=== PATIENT | male | born 1930 | race Caucasian/White ===

== ENCOUNTER 2018-10-14 09:35 | Inpatient (IN) | payer MEDICARE, MEDICAID ==
--- NOTE | 2018-10-14 10:27 | CT ---
Date of service: 10/14/2018 PROCEDURE: CT HEAD WITHOUT CONTRAST. HISTORY: dizziness COMPARISON: None available. TECHNIQUE: Axial computed tomography images were obtained through the head/brain without intravenous contrast. Radiation dose: Total exam DLP = 896.72 mGy-cm. This CT exam was performed using one or more of the following dose reduction techniques: Automated exposure control, adjustment of the mA and/or kV according to patient size, and/or use of iterative reconstruction technique. FINDINGS: HEMORRHAGE: No intracranial hemorrhage. BRAIN: No mass effect or edema. Chronic microvascular changes are seen in the periventricular white matter. VENTRICLES: Unremarkable. No hydrocephalus. CALVARIUM: Unremarkable. PARANASAL SINUSES: Unremarkable as visualized. No significant inflammatory changes. MASTOID AIR CELLS: Unremarkable as visualized. No inflammatory changes. OTHER FINDINGS: None. IMPRESSION: No acute intracranial findings
[2018-10-14 10:46] LABS: BASO # 0.03 K/mm3 (0.0-2.0); BASO % 0.5 % (0.0-3.0); EOS # 0.1 (0.0-0.7); EOS % 2.2 % (1.5-5.0); HEMOGLOBIN 12.1 g/dL (14.0-18.0); LYMPH # 1.7 (1.2-3.4); LYMPH % 31.5 % (22.0-35.0); MEAN CELL VOLUME 90.3 fl (80.0-105.0); MEAN CORPUSCULAR HEMOGLOBIN 27.9 pg (25.0-35.0); MEAN CORPUSCULAR HGB CONC 30.9 g/dl (31.0-37.0); MEAN PLATELET VOLUME 9.9 fl (7.0-11.0); MONO # 0.4 (0.1-0.6); RBC 4.33 10^6/uL (3.5-6.1); WHITE BLOOD COUNT 5.5 10^3/uL (4.5-11.0)
[2018-10-14 10:57] LABS: ALB/GLOB RATIO 1.1 (1.1-1.8); ALBUMIN 4.2 g/dL (3.0-4.8); ALT/SGPT 12 U/L (7-56); AST/SGOT 23 U/L (17-59); BLOOD UREA NITROGEN 34 mg/dL (7-21); CALCIUM 9.7 mg/dL (8.4-10.5); GFR NON-AFRICAN AMERICAN 44; INR 1.08; PROTHROMBIN TIME 12.2 SECONDS (9.4-12.5)
[2018-10-14 11:08] LABS: TROPONIN I < 0.01 ng/mL
[2018-10-14 11:17] LABS: FREE T4 1.25 ng/dL (0.78-2.19)
[2018-10-14 11:51] LABS: URINE BILIRUBIN NEGATIVE (NEGATIVE); URINE BLOOD SMALL (NEGATIVE); URINE GLUCOSE (UA) NEGATIVE (NEGATIVE); URINE LEUKOCYTE ESTERASE MODERATE Leu/uL (NEGATIVE); URINE PROTEIN TRACE mg/dL (<30 mg/dL); URINE UROBILINOGEN 0.2 E.U./dL (<1 E.U./dL)
[2018-10-14 11:56] LABS: URINE APPEARANCE CLOUDY (CLEAR); URINE COLOR LIGHT YELLOW (YELLOW)
[2018-10-14 11:58] LABS: URINE BACTERIA LARGE /hpf; URINE RBC 20 - 25 /hpf (0-2); URINE WBC TNTC /hpf (0-6)
--- NOTE | 2018-10-14 11:59 | ED PDOC ---
Arrival/HPI - General Chief Complaint: Dizziness/Lightheaded Time Seen by Provider: 10/14/18 09:43 Historian: Patient, Family - History of Present Illness Narrative History of Present Illness (Text): 10/14/18 11:56 88yo male with past medical history of hypertension and Diabetes referred to emergency department by Dr. Brown for dizziness and unsteady gait x one week. the daughter by the bedside states patient had history of similar positional dizziness years ago, but it resolved. Notes that it started again once week ago and was worse this time. Saw Dr. Brown and have blood pressure discrepancy on his upper extremity and was referred to emergency department for further evaluation. He denies headache, tinnitus, URI, focal weakness, chest pain, nausea, vomiting, diarrhea, abdominal pain, any other complaint. Past Medical History - Provider Review Nursing Documentation Reviewed: Yes - Infectious Disease Hx of Infectious Diseases: None - Cardiac Hx Cardiac Disorders: No - Pulmonary Hx Asthma: Yes - Psychiatric Hx Substance Use: No Family/Social History - Physician Review Nursing Documentation Reviewed: Yes Family/Social History: Unknown Family HX Smoking Status: Unknown If Ever Smoked Hx Alcohol Use: No Hx Substance Use: No Allergies/Home Meds Allergies/Adverse Reactions: Allergies No Known Allergies Allergy (Verified 10/14/18 09:46) Home Medications: Home Meds Medication Instructions Recorded Confirmed Albuterol HFA [Ventolin HFA 90 1 puff IH 10/14/18 mcg/actuation (8 g)] Aspirin [Ecotrin] 81 mg PO DAILY 10/14/18 10/14/18 Budesonide/Formoterol Fumarate 1 aer IH DAILY 10/14/18 10/14/18 [Symbicort] Cilostazol [Pletal] 50 mg PO DAILY 10/14/18 10/14/18 Ducodyl 5 mg PO PRN 10/14/18 10/14/18 Dutasteride [Avodart] 0.5 mg PO DAILY 10/14/18 10/14/18 Famotidine [Pepcid] 40 mg PO DAILY 10/14/18 10/14/18 Memantine HCl [Memantine HCl ER] 10 mg PO DAILY 10/14/18 10/14/18 Omeprazole 40 mg PO DAILY 10/14/18 10/14/18 Review of Systems - Physician Review All systems were reviewed & negative as marked: Yes - Review of Systems Constitutional: Normal Eyes: Normal ENT: Normal Respiratory: Normal Cardiovascular: Normal Gastrointestinal: Normal Genitourinary Male: Normal Musculoskeletal: Normal Skin: Normal Neurological: Dizziness. absent: Headache, Focal Weakness, Gait Changes, Speech Changes, Facial Droop Endocrine: Normal Hemo/Lymphatic: Normal Psychiatric: Normal Physical Exam Vital Signs Reviewed: Yes Vital Signs Temp Pulse Resp BP Pulse Ox 10/14/18 11:24 86 18 121/77 98 10/14/18 10:35 99 H 18 128/76 97 10/14/18 09:39 98.5 F 107 H 20 133/89 97 Temperature: Afebrile Blood Pressure: Normal Pulse: Regular Respiratory Rate: Normal Appearance: Positive for: Well-Appearing, Non-Toxic, Comfortable Pain Distress: None Mental Status: Positive for: Alert and Oriented X 3 - Systems Exam Head: Present: Atraumatic, Normocephalic Pupils: Present: PERRL Extroacular Muscles: Present: EOMI Conjunctiva: Present: Normal Mouth: Present: Moist Mucous Membranes Neck: Present: Normal Range of Motion Respiratory/Chest: Present: Clear to Auscultation, Good Air Exchange. No: Respiratory Distress, Accessory Muscle Use Cardiovascular: Present: Regular Rate and Rhythm, Normal S1, S2. No: Murmurs Abdomen: No: Tenderness, Distention, Peritoneal Signs Back: Present: Normal Inspection Upper Extremity: Present: Normal Inspection. No: Cyanosis, Edema Lower Extremity: Present: Normal Inspection. No: Edema Neurological: Present: GCS=15, CN II-XII Intact, Speech Normal, Motor Func Gr ossly Intact, Normal Sensory Function, Normal Cerebellar Funct, Norm Deep Tendon Reflexes, Gait Normal, Memory Normal, Other (No focal neurological deficit) Skin: Present: Warm, Dry, Normal Color. No: Rashes Psychiatric: Present: Alert, Oriented x 3, Normal Insight, Normal Concentration Medical Decision Making ED Course and Treatment: 10/14/18 18:45 88yo male who was referred to emergency department y Dr. brown for dizziness x one week PT was hemodynamically stable and neurologically intact in emergency department Lab EKG Chest xray Head CT EKG NSR @ 100bpm. chest xray IMPRESSION: No active disease. Labs was unremarkable Head CT IMPRESSION: No acute intracranial findings Case was DW Dr. Brown, he noted discrepancy of pt's BP in his upper extremity while in his office and pt also had discrepancy when checked in the emergency department . He will be admitted for further evaluation of possible vasicular insufficiency vs cardiac Pt was admitted to his service. He requested upper extremity artery US and it was placed Upper extremity artery US IMPRESSION: 1. Mildly abnormal left wrist-brachial index at rest 2. Left subclavian occlusive disease. If clinically indicated, further evaluation can be performed with an MRA with gadolinium evaluation of the arch or conventional arteriography Result and plan was DW pt and the family and they agreed - Lab Interpretations Lab Results: PT 12.2 SECONDS (9.4-12.5) 10/14/18 10:30 INR 1.08 10/14/18 10:30 APTT 35.0 Seconds (26.9-38.3) 10/14/18 10:30 Troponin I < 0.01 ng/mL 10/14/18 10:30 Total Bilirubin 0.2 mg/dL (0.2-1.3) 10/14/18 10:30 AST 23 U/L (17-59) 10/14/18 10:30 ALT 12 U/L (7-56) 10/14/18 10:30 Alkaline Phosphatase 78 U/L (38-126) 10/14/18 10:30 Total Protein 7.8 g/dL (5.8-8.3) 10/14/18 10:30 Albumin 4.2 g/dL (3.0-4.8) 10/14/18 10:30 Globulin 3.7 gm/dL 10/14/18 10:30 Albumin/Globulin Ratio 1.1 (1.1-1.8) 10/14/18 10:30 Urine Color Light yellow (YELLOW) 10/14/18 11:33 Urine Appearance Cloudy (CLEAR) 10/14/18 11:33 Urine pH 6.0 (4.7-8.0) 10/14/18 11:33 Ur Specific Bixby 1.025 (1.005-1.035) 10/14/18 11:33 Urine Protein Trace mg/dL (<30 mg/dL) H 10/14/18 11:33 Urine Glucose (UA) Negative mg/dL (NEGATIVE) 10/14/18 11:33 Urine Ketones Negative mg/dL (NEGATIVE) 10/14/18 11:33 Urine Blood Small (NEGATIVE) H 10/14/18 11:33 Urine Nitrate Positive (NEGATIVE) H 10/14/18 11:33 Urine Bilirubin Negative (NEGATIVE) 10/14/18 11:33 Urine Urobilinogen 0.2 E.U./dL (<1 E.U./dL) 10/14/18 11:33 Ur Leukocyte Esterase Moderate Sheng/uL (NEGATIVE) H 10/14/18 11:33 - RAD Interpretation Radiology Orders: 10/14/18 10:03 HEAD W/O CONTRAST [CT] Stat CHEST PORTABLE [RAD] Stat 10/14/18 11:20 UPPER EXT ART NON-INV COMPLETE [US] Stat Disposition/Present on Arrival - Present on Arrival Any Indicators Present on Arrival: No History of DVT/PE: No History of Uncontrolled Diabetes: No Urinary Catheter: No History of Decub. Ulcer: No History Surgical Site Infection Following: None - Disposition Have Diagnosis and Disposition been Completed?: Yes Diagnosis: Near syncope, Unsteady gait, Vascular insufficiency of extremity, UTI (urinary tract infection) Disposition: HOSPITALIZED Disposition Time: 11:00 Patient Plan: Admission Patient Problems: Current Active Problems Problem Status Onset Near syncope Acute UTI (urinary tract infection) Acute Unsteady gait Acute Vascular insufficiency of extremity Acute Condition: FAIR
[2018-10-14] MEDS ORDERED: cefTRIAXone 1 gm 1 GM/100 ML BAG IVPB STA (12:01)
--- NOTE | 2018-10-14 12:34 | RAD ---
Date of service: 10/14/2018 HISTORY: admission COMPARISON: No prior. FINDINGS: LUNGS: No active pulmonary disease. PLEURA: No significant pleural effusion identified, no pneumothorax apparent. CARDIOVASCULAR: No aortic atherosclerotic calcification present. Normal cardiac size. No pulmonary vascular congestion. OSSEOUS STRUCTURES: No significant abnormalities. VISUALIZED UPPER ABDOMEN: Normal. OTHER FINDINGS: None. IMPRESSION: No active disease.
[2018-10-14] MEDS: Pantoprazole 40 mg EC Tab PO SCH (16:59)
--- NOTE | 2018-10-14 17:10 | CARD ---
APPROVED REPORT Date of service: 10/14/2018 EKG Measurement Heart [id number] <Conclusion> Normal sinus rhythm Low voltage QRS Borderline ECG
--- NOTE | 2018-10-14 18:26 | US ---
PROCEDURE: Bilateral carotid artery duplex ultrasound HISTORY: Carotid stenosis dizziness PHYSICIAN(S): Pedro Bruno MD. TECHNIQUE: Duplex sonography and color-flow Doppler were used to evaluate the carotid bifurcations and limited segments of the vertebral arteries bilaterally. FINDINGS: There is moderate diffuse smooth heterogeneous plaque noted at the carotid bifurcations bilaterally. The peak systolic velocity in the proximal right internal carotid artery is 212 cm/sec. This corresponds to a 60-79 percent proximal right ICA stenosis. Normal systolic velocities are noted in the proximal right external carotid artery. There is antegrade flow in the small right vertebral artery. The peak systolic velocity in the proximal left internal carotid artery is 111 cm/sec. This corresponds to a 40-59 percent proximal left ICA stenosis. Normal systolic velocities are noted in the proximal left external carotid artery. There is antegrade flow in the left vertebral artery. IMPRESSION: 1. 60-79 percent proximal right ICA stenosis 2. 40-59 percent proximal left ICA stenosis. 3. Antegrade flow in bilateral small vertebral arteries.
--- NOTE | 2018-10-14 18:35 | US ---
Date of service: 10/14/2018 PROCEDURE: Upper extremity wrist/brachial index and PVR exam HISTORY: Evaluate for left upper extremity occlusive disease COMPARISON: TECHNIQUE: FINDINGS: The right wrist-brachial index is normal, 1.16. The left wrist-brachial index is mildly abnormal, 0.72 The segmental pressures and PVR waveforms are normal at all levels on the right. There is a 43 mm difference between the brachial pressures, lower on the left. The left PVR waveforms are mildly blunted compared to the right. The findings are consistent with left subclavian occlusive disease IMPRESSION: 1. Mildly abnormal left wrist-brachial index at rest 2. Left subclavian occlusive disease. If clinically indicated, further evaluation can be performed with an MRA with gadolinium evaluation of the arch or conventional arteriography
--- NOTE | 2018-10-14 20:38 | CON ---
DATE: 10/14/2018 HISTORY OF PRESENT ILLNESS: This is an 88-year-old male with past medical history of hypertension, diabetes, and came here with a complaint of dizziness, unsteady gait and brought into the emergency room, and daughter at the bedside. PAST MEDICAL HISTORY: As above. The patient has asthma. ALLERGIES: NO KNOWN DRUG ALLERGIES. MEDICATIONS: Aspirin, albuterol, Pepcid, memantine, and omeprazole. REVIEW OF SYSTEMS: Ten point review of system was negative. PHYSICAL EXAMINATION: VITAL SIGNS: Blood pressure 120/77. HEENT: Normocephalic and atraumatic. NECK: Supple. NEUROLOGIC: Awake and oriented to self and place. Cranial nerves II through XII were tested. Pupils reactive. EOM intact. Visual field full. No facial asymmetry. Tongue midline. Motor examination; moves all the extremities spontaneously. Deep tendon reflexes 1+. Both plantars are downgoing. Sensory appears intact. Cerebellar gait deferred. IMPRESSION: Near syncope and unsteady gait. CAT scan on the head was done, which was negative and workup in progress. We will follow up. Dez Post MD
[2018-10-14 22:18] VITALS: BMI 34.4
[2018-10-14] MEDS ORDERED: Pneumococcal 23-Valent Vaccine IM ONE (22:19)
[2018-10-14] MEDS ORDERED: Influenza Vaccine 60 mcg/0.5 mL SYR (4YR UP) IM ONE (22:19)
--- NOTE | 2018-10-15 01:02 | HP ---
DATE OF EXAM: 10/14/2018 REASON FOR VISIT: Dizziness. HISTORY OF PRESENT ILLNESS: An 88-year-old male who came in because of dizziness. The patient has persistent dizziness, seems to be getting worse. Also, the patient had abnormal carotid Doppler with symptoms of decreased blood pressure on the left side. The patient was advised to be evaluated in the hospital for dizziness and the new finding of vascular insufficiency in his upper extremity. The patient denies any focal weakness. He does get dizzy on and off. He has no nausea. No vomiting. No fever. The patient has peripheral vascular disease on Pletal and he does have history of dementia. ALLERGIES: NO KNOWN ALLERGY. HOME MEDICATIONS: Namenda 10 mg. He also used Symbicort, Avodart, Pepcid 40, Pletal 50 b.i.d., Prilosec 40, Ecotrin 81 mg, and Ventolin 2 puffs q.i.d. PAST MEDICAL HISTORY: He does have history of dementia, COPD, peripheral vascular disease, obesity. FAMILY HISTORY: Noncontributory. SOCIAL HISTORY: He lives with his . He did smoke in the past for years. He still smoke on and off. He drank for past few years, but not anymore. No other complaints. REVIEW OF SYSTEMS: Dizziness as in the present illness. Frequent urinations. Unsteady gait sometimes. Otherwise, he gets sometimes short of breath with exertion, otherwise negative. LABORATORY DATA: White count 5.5, hemoglobin 12.1, hematocrit 39.1, and platelets 251. Chemistry: Sodium 143, potassium 5, chloride 103, bicarbonate 34, BUN 34, creatinine 1.5. Blood sugar 117. Liver function test is normal. Troponin is negative. Total protein 7.8. Albumin and globulin is normal. TSH is 0.69. PTT and PT is normal. Urine showed lot of white cells and a lot of red blood cells. IMPRESSION AND PLAN: 1. Dizziness and lightheadedness. Unclear. Rule out vascular etiology, vertebrobasilar insufficiency or transient ischemic attack. We will get Neurology consult. We will repeat carotid Doppler study. 2. Left arm decreased pulse. No chest pain associated with that. It is possible subclavian artery obstruction or stenosis. We will get back to Dr. Pedro Bruno. We will repeat arterial Doppler where we will get arterial Doppler of his upper extremity. 3. History of prostate enlargement. Resume medications. 4. Chronic obstructive pulmonary disease. Continue nebulizer treatment and followup clinically. 5. Vascular dementia. Continue Namenda. Hunter Torres MD
[2018-10-15] MEDS ORDERED: Pantoprazole 40 mg EC Tab PO SCH (07:30)
[2018-10-15] MEDS ORDERED: Enoxaparin 40 mg Syringe SC SCH (10:00)
[2018-10-15] MEDS ORDERED: MEMANTINE HCL 10 MG PO SCH (10:00)
[2018-10-15] MEDS: Arformoterol 15 mcg/2 ml Inh Sol IH SCH ×2 (10:49→19:36)
[2018-10-15] MEDS: Budesonide 0.5 mg/2 ml Inhal Susp UD IH SCH ×2 (10:49→19:36)
[2018-10-15] MEDS: Albuterol-Ipratrop 3 mg / 0.5 (3 ml) UD IH SCH ×2 (10:50→19:36)
[2018-10-15] MEDS: Pantoprazole 40 mg EC Tab PO SCH (11:07)
[2018-10-15] MEDS: Cilostazol 50 mg Tab UD PO SCH ×2 (11:07→18:19)
--- NOTE | 2018-10-15 16:20 | MRI ---
Date of service: 10/15/2018 PROCEDURE: MRI BRAIN WITHOUT CONTRAST HISTORY: dizziness COMPARISON: None available. TECHNIQUE: Multiplanar, multisequence MR images of the brain were obtained without intravenous contrast enhancement. FINDINGS: HEMORRHAGE: None DWI: No evidence of an acute or early subacute infarction. BRAIN PARENCHYMA: No mass effect or edema. Severe chronic microvascular changes are seen in the periventricular white matter. There is moderate atrophy. VENTRICLES: Unremarkable. No hydrocephalus. CRANIUM: Unremarkable. ORBITS: Grossly unremarkable. PARANASAL SINUSES/MASTOIDS: Clear VASCULAR SYSTEM: Skull base flow voids intact. OTHER FINDINGS: None. IMPRESSION: No acute intracranial findings
--- NOTE | 2018-10-15 16:21 | PN ---
DATE: 10/15/2018 NEUROLOGY FOLLOWUP CHIEF COMPLIANT: Followup for dizziness. SUBJECTIVE: The patient was seen at bedside, feeling much better today. His carotid Doppler on 10/14/2018 showed 60% to 70% of possible right ICA stenosis and 40% to 59% possible left ICA stenosis. The patient is on dual antiplatelet therapy in terms of Pletal and aspirin for peripheral vascular disease, as well as carotid artery stenosis. the patient had a symptoms of vestibular basilar insufficiency. MRI of the brain is pending. PAST MEDICAL HISTORY: History of cognitive impairment, COPD, peripheral vascular disease, and obesity. FAMILY HISTORY: Noncontributory. SOCIAL HISTORY: No illicit drug abuse, smoking, or drug abuse at this time. He is imminently smoking on and off. REVIEW OF SYSTEMS: A 14-point review of system is negative except for the HPI. MEDICATIONS: Reviewed by nurses' reconciliation sheet. ALLERGIES: NO KNOWN DRUG ALLERGIES. LABORATORY DATA: Today's blood sugar is 116. PHYSICAL EXAMINATION: GENERAL: The patient is sitting up in bed and in no acute distress. VITAL SIGNS: Temperature 98, pulse rate of 79, blood pressure 109/62, respiratory rate 18, and oxygen saturation 98% on room air. HEENT: Atraumatic and normocephalic, PERRLA. Extraocular muscles are intact. NECK: Supple, no JVD and no adenopathy noted. LUNGS: Clear to auscultation. No adventitious sounds. HEART: S1 and S2. Normal rate and rhythm. No murmurs, rubs or gallops. ABDOMEN: Soft, nontender, and nondistended. Bowel sounds are present. EXTREMITIES: No clubbing, no cyanosis. Peripheral pulses 2+ felt bilaterally. NEUROLOGIC: The patient is alert and oriented to person and place, month and year. Speech is fluent without any errors. Cranial nerves II through XII intact. Motor exam; moves all upper extremities equally. . Sensory exam; light touch, pinprick, proprioception and vibration are intact. DTRs are 2+ throughout and 1 at both knees and ankles. Coordination; [id number] is intact. No dysmetria noted. Gait is deferred for now. 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 RECOMMENDATIONS: At this time we will recommend; 1. Continue aspirin 81 mg, Lipitor of 40 mg in addition to continue Pletal for his underlying peripheral vascular disease, as well as carotid artery disease 50 mg p.o. twice a day. 2. Avoid sudden movements. 3. Vestibular therapy as inpatient and outpatient and continue with MRI of the brain to see any structural abnormalities and continue current and present medical management. Ryder Post MD
--- NOTE | 2018-10-15 16:21 | MRI ---
Date of service: 10/15/2018 PROCEDURE: Magnetic Resonance Angiography Brain HISTORY: Dizziness COMPARISON: None available. TECHNIQUE: 3D time of flight MR angiography of the intracranial arteries was performed. Rotating maximum intensity projection images were generated. FINDINGS: INTERNAL CAROTID ARTERIES: Unremarkable. The skull base, petrous, cavernous and supraclinoid segments are bilaterally widely patient. ANTERIOR CEREBRAL ARTERIES: Unremarkable. A1 and A2 segments are widely patent. Smaller distal branches unremarkable, as visualized. MIDDLE CEREBRAL ARTERIES: Unremarkable. M1 and M2 segments are widely patent. Perisylvian branches grossly symmetric. POSTERIOR CIRCULATION: Basilar Artery: Unremarkable. Distal Vertebral Arteries: Unremarkable. Posterior Cerebral Arteries: Unremarkable. Posterior Inferior Cerebellar Arteries: Unremarkable. ANEURYSM/ VASCULAR MALFORMATIONS: None. OTHER FINDINGS: None. IMPRESSION: Unremarkable MR angiography of the brain.
--- NOTE | 2018-10-15 20:46 | US ---
HISTORY: Leg pain and swelling. Evaluate for DVT PHYSICIAN(S): Pedro Bruno MD. TECHNIQUE: Duplex sonography and color-flow Doppler with graded compression were used to evaluate the deep venous systems of both lower extremities. FINDINGS: The visualized deep venous systems of both lower extremities are sonographically normal and compressible. Normal wave forms and augmentation are seen. There is no sonographic evidence for deep venous thrombosis in the visualized segments of both lower extremities. IMPRESSION: No sonographic evidence for deep venous thrombosis in the visualized segments of both lower extremities.
--- NOTE | 2018-10-15 23:38 | PN ---
DATE: 10/15/2018 SUBJECTIVE: The patient was admitted with dizziness, unsteady gait. 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 We discussed with Dr. Pedro Bruno. The patient right now is feeling okay. No chest pain. No short of breath. PHYSICAL EXAMINATION: VITAL SIGNS: Temperature 98, heart rate 79, blood pressure 121/78, respirations 18, and saturation 98%. HEAD AND NECK: Normal. No JVD. No thyromegaly. CHEST: Clear bilateral. CARDIAC: First sound and second sounds are normal. ABDOMEN: Soft and nontender. EXTREMITIES: No edema. NEUROLOGIC: Normal. ASSESSMENT AND PLAN: 1. Dizziness, unsteady gait, transient ischemic attack. Continue aspirin. 2. Left subclavian stenosis or obstructions. Discussed with Dr. Pedro Bruno. We will get MRA with carotid of the aortic arch. 3. Urinary tract infection. Continue Rocephin. 4. History of liver disease, alcohol use in the past, seems stable now. 5. Peripheral vascular disease. We will get arterial and venous Dopplers of lower extremity. Continue gastrointestinal and deep venous thrombosis prophylaxis. The patient may benefit from rehab, may be TCU, physical therapy. Hunter Torres MD
[2018-10-16] MEDS: Arformoterol 15 mcg/2 ml Inh Sol IH SCH ×2 (07:44→20:08)
[2018-10-16] MEDS: Budesonide 0.5 mg/2 ml Inhal Susp UD IH SCH ×2 (07:45→20:08)
[2018-10-16] MEDS: Albuterol-Ipratrop 3 mg / 0.5 (3 ml) UD IH SCH ×3 (07:45→20:08)
[2018-10-16 09:10] VITALS: RESP 18
[2018-10-16] MEDS: Enoxaparin 30 mg Syringe SC SCH (09:10)
[2018-10-16] MEDS: Pantoprazole 40 mg EC Tab PO SCH (09:11)
[2018-10-16] MEDS: Cilostazol 50 mg Tab UD PO SCH ×2 (09:11→17:35)
[2018-10-16] MEDS: Dutasteride [Avodart] 0.5 MG (HOME MED) PO SCH (09:13)
--- NOTE | 2018-10-16 10:01 | CARD ---
APPROVED REPORT Date of service: 10/16/2018 EKG Measurement Heart [id number] <Conclusion> Baseline artifact Nonspecific ST-T abnormalities Low voltage QRS Abnormal ECG
[2018-10-16] MEDS: cefTRIAXone 1 gm 1 GM/100 ML BAG IVPB SCH (13:10)
--- NOTE | 2018-10-16 13:29 | CP.PCM.APN ---
Subjective - Date & Time of Evaluation Date of Evaluation: 10/16/18 Time of Evaluation: 08:15 - Subjective Subjective: Pt seen and examined at bedside. C/O midsternal chest pain that is nonradiating and reproducible. Denies shortness of breath. Objective - Vital Signs/Intake and Output Vital Signs (last 24 hours): Temp Pulse Resp BP Pulse Ox 98.2 F 68 18 135/56 L 94 L 10/16/18 06:00 10/16/18 06:00 10/16/18 06:00 10/16/18 06:00 10/16/18 06:00 Intake and Output: 10/16/18 10/16/18 06:59 18:59 Intake Total 0 Balance 0 - Medications Medications: Current Medications Albuterol/Ipratropium (Duoneb 3 Mg/0.5 Mg (3 Ml) Ud) 3 ml IH QID [facility] Last Admin: 10/16/18 07:45 Dose: 3 ml Arformoterol Tartrate (Brovana) 15 mcg IH [id number] [facility] Last Admin: 10/16/18 07:44 Dose: 15 mcg Aspirin (Ecotrin) 81 mg PO DAILY [facility] Last Admin: 10/16/18 09:11 Dose: 81 mg Budesonide (Pulmicort Respules) 0.5 mg IH BIDRESP [facility] Last Admin: 10/16/18 07:45 Dose: 0.5 mg Cilostazol (Pletal) 50 mg PO BID [facility] Last Admin: 10/16/18 09:11 Dose: 50 mg Donepezil HCl (Aricept) 5 mg PO HS [facility] Last Admin: 10/15/18 21:04 Dose: 5 mg Enoxaparin Sodium (Lovenox) 30 mg SC DAILY [facility]; Protocol Last Admin: 10/16/18 09:10 Dose: 30 mg Famotidine (Pepcid) 20 mg PO HS [facility] Last Admin: 10/15/18 21:04 Dose: 20 mg Ceftriaxone Sodium (Rocephin 1 Gram Ivpb) 1 gm in 100 mls @ 100 mls/hr IVPB DAILY [facility]; Protocol Last Admin: 10/16/18 13:10 Dose: 100 mls/hr Dutasteride [Avodart (] 0.5 Mg (Home Med)) 0.5 mg PO DAILY [facility] Last Admin: 10/16/18 09:13 Dose: Not Given Memantine Hcl [ Memantine Hcl Er] 10 Mg 10 mg PO DAILY [facility] Last Admin: 10/16/18 09:13 Dose: Not Given Pantoprazole Sodium (Protonix Ec Tab) 40 mg PO DAILY [facility] Last Admin: 10/16/18 09:11 Dose: 40 mg - Labs Labs: 10/14/18 10:30 10/14/18 10:30 PT 12.2 SECONDS (9.4-12.5) 10/14/18 10:30 INR 1.08 10/14/18 10:30 APTT 35.0 Seconds (26.9-38.3) 10/14/18 10:30 - Constitutional Appears: No Acute Distress - Head Exam Head Exam: ATRAUMATIC - Eye Exam Eye Exam: Normal appearance - Respiratory Exam Respiratory Exam: Clear to Ausculation Bilateral, NORMAL BREATHING PATTERN - Cardiovascular Exam Cardiovascular Exam: REGULAR RHYTHM, +S1, +S2 - GI/Abdominal Exam GI & Abdominal Exam: Soft, Normal Bowel Sounds - Rectal Exam Rectal Exam: Deferred - Extremities Exam Extremities Exam: Normal Inspection - Neurological Exam Neurological Exam: Alert, Awake Assessment and Plan - Assessment and Plan (Free Text) Assessment: Pt is an 88 y.o. male with pmhx of DM, HTN, PVD, COPD, and dementia who presented in ED for dizziness and unsteady gait x1week. ITS Impressions Chest X-Ray 10/14/18 10:03 IMPRESSION: No active disease. Head CT 10/14/18 10:03 IMPRESSION: No acute intracranial findings Extremity Ultrasound 10/14/18 11:20 IMPRESSION: 1. Mildly abnormal left wrist-brachial index at rest 2. Left subclavian occlusive disease. If clinically indicated, further evaluation can be performed with an MRA with gadolinium evaluation of the arch or conventional arteriography Carotid Artery Ultrasound 10/14/18 15:01 IMPRESSION: 1. 60-79 percent proximal right ICA stenosis 2. 40-59 percent proximal left ICA stenosis. 3. Antegrade flow in bilateral small vertebral arteries. Brain MRI 10/15/18 15:02 IMPRESSION: No acute intracranial findings Head MRA 10/15/18 15:44 IMPRESSION: Unremarkable MR angiography of the brain. Extremity Ultrasound 10/15/18 17:51 IMPRESSION: No sonographic evidence for deep venous thrombosis in the visualized segments of both lower extremities. Plan: Chest pain - EKG reviewed w/ Dr. Yoder. Recommends ECHO. Orthostatic BP/check BP on both arms Neuro on consult Physical therapy pending Meds per MAR Will continue to follow
--- NOTE | 2018-10-16 19:10 | US ---
PROCEDURE: Lower extremity JACE exam HISTORY: Peripheral vascular disease with pain and claudication. PHYSICIAN(S): Pedro Bruno MD. FINDINGS: The right JACE is mildly abnormal and the left JACE is moderately abnormal. There is a 51 mm difference between the brachial pressures, consistent with left subclavian occlusive disease. The high thigh pressures and waveforms are relatively normal. There is a 28 mm gradient across the left thigh. This is consistent with left SFA occlusive disease The ankle and metatarsal waveforms are mildly blunted, greater on the left than the right IMPRESSION:
--- NOTE | 2018-10-16 21:55 | CON ---
DATE: 10/16/2018 HISTORY OF PRESENT ILLNESS: The patient is an 88-year-old male was admitted with dizziness to emergency room. The patient also had dizziness and unsteady gait. Denies chest pain, shortness of breath, or palpitation. The patient speaks at average, history taken from the son. PAST MEDICAL HISTORY: Positive for dementia, peripheral vascular disease, COPD, and obesity. The patient had hemorrhoidectomy. PERSONAL HISTORY: No history of smoking. No history of drinking. ALLERGIES: NO ALLERGIES. MEDICATIONS: List of medications at home; the patient was on Namenda 10 mg daily, Pepcid, Pletal 50 b.i.d., Prilosec 40 daily, Ecotrin 81 mg daily, Ventolin 2 puffs q.i.d., Avodart 40, and Symbicort. REVIEW OF SYSTEMS: All the systems reviewed positive mentioned in the history, others were negative. PHYSICAL EXAMINATION: VITAL SIGNS: Blood pressure 135/56, respirations 18, pulse 68, and temperature 98.2. HEENT: Head is normocephalic. Eyes; pupils normal. Conjunctivae normal. Nose and throat normal. NECK: JVP low. Carotids are equal. THORAX: AP diameter normal. LUNGS: Clear. CARDIOVASCULAR: S1 and S2. ABDOMEN: Soft. No tenderness. No organomegaly. Bowel sounds normal. EXTREMITIES: No clubbing. No cyanosis. LABORATORY DATA: Show WBC 5.5, hemoglobin 12.1, hematocrit 39.1, and platelet 251. Sodium 143, potassium 5, BUN 34, creatinine 1.5, and random glucose 116. On admission, sugar was 117. Troponin less than 0.01. TSH 0.69. Chest x-ray; no active disease. EKG shows normal sinus rhythm, low voltage. Carotid ultrasound show 60% to 79% proximal right ICA stenosis, 40% to 50% proximal left ICA stenosis, and antegrade flow in the bilateral small vertebral arteries. Head CT; no acute intracranial findings. Brain MRI did not show any acute abnormalities. Head MRA also unremarkable. DIAGNOSES: Dizziness and lightheadedness. The left arm has decreased pulse, chronic obstructive pulmonary disease, and vascular dementia. PLAN: The patient's EKG, which was done this morning showed artifact. There was no atrial flutter or fibrillation, heart rate was sinus rhythm, with artifact.. The patient was probably moving at the time of EKG, so that gives false impression of looks like false atrial flutter or fibrillation, but actually the patient was in sinus rhythm with normal heart rate. We will check blood pressure lying, sitting, and standing to see there is no postural hypotension, but we will also check blood pressure in both arms. We will check blood pressure in three position to rule out postural hypotension and we will do an echocardiogram. The patient is in sinus rhythm and so far no evidence of any arrhythmia, also check blood pressure in both arms to see how much difference in between the blood pressure and we will follow with you. In the meantime, the patient is getting Aricept 5 mg at bedtime, aspirin 81 mg daily, Lovenox 30 mg subcutaneously daily, omega p.o. daily, memantine hydrochloride 10 mg p.o. daily, Pepcid 20 mg at bedtime, Pletal 50 mg b.i.d., and pantoprazole 40 mg p.o. daily. We will follow with you. Steve Yoder MD MTDM[facility]
--- NOTE | 2018-10-17 02:00 | PN ---
DATE: 10/16/2018 SUBJECTIVE: Patient is an 88-year-old male who came into the hospital because of dizziness, and abnormal pulse on the left arm. Patient was seen, is elevated for possible obstructions of his upper extremity. For his dizziness, patient had some workup. Neuro consult with MRI. He still feels dizzy, still feels unsteady. Also, patient does have chest pain today and seen by Cardiology Dr. Yoder. PHYSICAL EXAMINATION VITAL SIGNS: Temperature 98.2, pulse 68, blood pressure 125/56, respirations 18, and saturation 95%. HEAD AND NECK: Normal. No JVD. No thyromegaly. CHEST: Clear bilaterally. CARDIAC: First sound and second sound normal. No murmur, rub, or gallop. ABDOMEN: Soft, obese, and nontender. EXTREMITIES: No edema. Left upper extremity diminished pulse. NEUROLOGIC: Normal. LABORATORY DATA: Patient's sugar is 116. TSH 0.69 which is normal. He also had venous Doppler of lower extremities that is normal. EKG was done showed artifact initially and other one regular sinus rhythm with nonspecific ST-T changes. Patient also had Doppler of lower extremity. There is occlusive disease at the left saphenous femoral artery and also he has left subclavian occlusive disease. IMPRESSION AND PLAN: 1. Unsteadiness, dizziness, transient ischemic attack. Continue current therapy. 2. Peripheral vascular disease, possible aortic arch problem. Rule out aortic arch problem. The patient does have left subclavian occlusive disease. We will continue current therapy. Continue aspirin. Continue Pletal. We are going to add Lipitor for his current regimen. 3. Chest pain. We will get cardiac consult. Echo shows good LV function. We will see what we can do about nuclear stress test. Continue current therapy. Aortic arch MRI with gadolinium. Discussed with Dr. Pedro Bruno and Cardiology evaluation noted. 4. Urinary tract infection. Continue Rocephin. Continue current therapy. Follow up clinically. Hunter Torres MD
[2018-10-17] MEDS: Budesonide 0.5 mg/2 ml Inhal Susp UD IH SCH ×2 (07:33→19:45)
[2018-10-17] MEDS: Arformoterol 15 mcg/2 ml Inh Sol IH SCH ×2 (07:33→19:45)
--- NOTE | 2018-10-17 08:17 | CARD ---
APPROVED REPORT Date of service: 10/16/2018 EKG Measurement Heart [id number] <Conclusion> Baseline artifact Normal sinus rhythm Low voltage QRS Nonspecific ST and T wave abnormality Abnormal ECG
[2018-10-17] MEDS ORDERED: Gadodiamide 287 MG/ML VIAL (20ML) IV ONE (10:17)
[2018-10-17] MEDS: Albuterol-Ipratrop 3 mg / 0.5 (3 ml) UD IH SCH ×3 (11:19→19:45)
[2018-10-17] MEDS: Cilostazol 50 mg Tab UD PO SCH ×2 (11:51→17:41)
[2018-10-17] MEDS: Pantoprazole 40 mg EC Tab PO SCH (11:52)
[2018-10-17] MEDS: cefTRIAXone 1 gm 1 GM/100 ML BAG IVPB SCH (11:52)
--- NOTE | 2018-10-17 12:00 | MRI ---
Date of service: 10/17/2018 PROCEDURE: MR Angiography of the neck with and without contrast HISTORY: Eval lt subcl stenosis and poss subcl steal COMPARISON: Duplex Doppler ultrasound 10/14/2018. TECHNIQUE: Preliminary 2D and 3D [id number] angiography was performed follow-up by contrast enhanced [id number] angiography of the neck was performed. Rotating 3D maximum intensity projection images of the cervical carotid and vertebral arteries were generated. 20 cc of Omniscan was utilized for the contrast enhanced 3D [id number] component of the examination. FINDINGS: RIGHT CAROTID ARTERIES: Common Carotid Artery: Normal. Carotid Bifurcation: Moderate atherosclerotic plaques identified without significant stenosis at the origin left ICA. Internal Carotid Artery:Atherosclerotic changes are identified at the proximal cervical ICA segment leading to a high-grade stenosis less than 3 cm distal to the origin. External Carotid Artery (proximal branches): Limited proximal stenosis. No moderate or severe stenosis identified. LEFT CAROTID ARTERIES: Common Carotid Artery: Normal. Carotid Bifurcation: Mild atherosclerotic plaques identified at the carotid bulb without significant stenosis. Internal Carotid Artery:Mild stenosis of the proximal segment less than 2 cm from the origin. No definite significant stenosis appreciated at the left cervical ICA. External Carotid Artery (proximal branches): Normal. VERTEBRAL ARTERIES: Right Vertebral Artery: High-grade origin stenosis with remainder widely patent. Left Vertebral Artery: Mild origin stenosis without additional stenosis evident. OTHER FINDINGS: No significant stenosis right subclavian artery incidentally. Limited atherosclerosis distal brachiocephalic artery. IMPRESSION: 1. High-grade stenosis proximal right cervical ICA, otherwise widely patent. 2. Mild proximal right left cervical ICA stenosis without additional stenosis evident. 3. High-grade origin right vertebral artery stenosis suspected. No definite additional right vertebral artery significant stenosis. 4. Mild stenosis proximal left vertebral artery. Unremarkable appearing left subclavian artery
--- NOTE | 2018-10-17 12:01 | CP.PCM.PN ---
Subjective - Date & Time of Evaluation Date of Evaluation: 10/17/18 Time of Evaluation: 06:50 - Subjective Subjective: Awake, alert, no distress Reason for consultation and follow up: Cardiac evaluation, admitted for dizziness, history of dementia, peripheral vascular disease, COPD,obesity,hypertension, diabetes Seen and examined by me and Dr. Tapia Objective - Vital Signs/Intake and Output Vital Signs (last 24 hours): Temp Pulse Resp BP Pulse Ox 98.2 F 90 18 128/74 94 L 10/17/18 06:00 10/17/18 06:00 10/17/18 06:00 10/17/18 06:00 10/17/18 06:00 Intake and Output: 10/17/18 10/17/18 06:59 18:59 Intake Total 720 Balance 720 - Medications Medications: Current Medications Albuterol/Ipratropium (Duoneb 3 Mg/0.5 Mg (3 Ml) Ud) 3 ml IH QIDRESP [facility] Last Admin: 10/17/18 11:19 Dose: 3 ml Arformoterol Tartrate (Brovana) 15 mcg IH [id number] [facility] Last Admin: 10/17/18 07:33 Dose: 15 mcg Aspirin (Ecotrin) 81 mg PO DAILY [facility] Last Admin: 10/16/18 09:11 Dose: 81 mg Budesonide (Pulmicort Respules) 0.5 mg IH BIDRESP [facility] Last Admin: 10/17/18 07:33 Dose: 0.5 mg Cilostazol (Pletal) 50 mg PO BID [facility] Last Admin: 10/16/18 17:35 Dose: 50 mg Donepezil HCl (Aricept) 5 mg PO HS [facility] Last Admin: 10/16/18 21:52 Dose: 5 mg Enoxaparin Sodium (Lovenox) 30 mg SC DAILY [facility]; Protocol Last Admin: 10/16/18 09:10 Dose: 30 mg Famotidine (Pepcid) 20 mg PO HS [facility] Last Admin: 10/16/18 21:52 Dose: 20 mg Ceftriaxone Sodium (Rocephin 1 Gram Ivpb) 1 gm in 100 mls @ 100 mls/hr IVPB DAILY [facility]; Protocol Last Admin: 10/16/18 13:10 Dose: 100 mls/hr Dutasteride [Avodart (] 0.5 Mg (Home Med)) 0.5 mg PO DAILY [facility] Last Admin: 10/16/18 09:13 Dose: Not Given Memantine Hcl [ Memantine Hcl Er] 10 Mg 10 mg PO DAILY [facility] Last Admin: 10/16/18 09:13 Dose: Not Given Pantoprazole Sodium (Protonix Ec Tab) 40 mg PO DAILY [facility] Last Admin: 10/16/18 09:11 Dose: 40 mg - Labs Labs: 10/14/18 10:30 10/14/18 10:30 PT 12.2 SECONDS (9.4-12.5) 10/14/18 10:30 INR 1.08 10/14/18 10:30 APTT 35.0 Seconds (26.9-38.3) 10/14/18 10:30 - Constitutional Appears: Non-toxic, No Acute Distress - Head Exam Head Exam: NORMAL INSPECTION, NORMOCEPHALIC - Eye Exam Eye Exam: Normal appearance Pupil Exam: NORMAL ACCOMODATION - ENT Exam ENT Exam: Mucous Membranes Moist, Normal Exam - Respiratory Exam Respiratory Exam: Clear to Ausculation Bilateral, NORMAL BREATHING PATTERN - Cardiovascular Exam Cardiovascular Exam: +S1, +S2 - GI/Abdominal Exam GI & Abdominal Exam: Soft, Normal Bowel Sounds - Extremities Exam Extremities Exam: Full ROM, Normal Capillary Refill - Neurological Exam Neurological Exam: Alert, Awake - Psychiatric Exam Psychiatric exam: Normal Affect, Normal Mood - Skin Skin Exam: Normal Color, Warm Assessment and Plan - Assessment and Plan (Free Text) Assessment: An 88 year old male who was brought to the ER due to dizziness. History of dementia, peripheral vascular disease, COPD,obesity,hypertension, diabetes, he morrhoidectomy. Admitted for dizziness and lightheadedness. 12 lead EKG showed artifact. No atrial flutter or fibrillation. Patient is NSR. Rule out postural hypotension. Echo done to evaluate LV function. Troponin normal. Neuro and Vascular on consult, work up in progress. JACE of lower extremity done, right JACE is mildly abnormal and left JACE moderately abnormal. There is 51 mm difference between brachial pressures consistent with left subclavian occlusive disease. There is 28 mm gradient ac ross the left thigh. This is consistent with left SFA occlusive disease. Plan: No distress Postural vital signs normal Lying BP 89/55 Sitting BP 89/56 Standing BP 100/63 Neuro on consult, work up in progress Continue current treatment Continue current medications On ASA 81 mg daily,Lovenox 30 mg daily Will follow up Plan and treatment discussed with Dr. Tapia
--- NOTE | 2018-10-17 12:44 | CP.PCM.PCO ---
Physician Communication Note - Physician Communication Note Physician Communication Note: Awaiting Dr. Bruno recs; PT pending.
[2018-10-17] MEDS: Enoxaparin 30 mg Syringe SC SCH (13:33)
--- NOTE | 2018-10-17 15:45 | CARD ---
APPROVED REPORT Date of service: 10/16/2018 EXAM: Two-dimensional and M-mode echocardiogram with Doppler and color Doppler. INDICATION Dizziness and Vertigo Hypertension/HCVD 2D DIMENSIONS Left Atrium (2D)3.6 (1.6-4.0cm)IVSd1.3 (0.7-1.1cm) LVDd4.2 (3.9-5.9cm)PWd1.3 (0.7-1.1cm) LVDs2.7 (2.5-4.0cm)FS (%) 36.3 % LVEF (%)66.3 (>50%) M-Mode DIMENSIONS Aortic Root3.50 (2.2-3.7cm)Aortic Cusp Exc.1.80 (1.5-2.0cm) Aortic Valve AO Peak GR.11mmHgAI P 1/2 [id number] Mitral Valve MV E Tssyjpji21.3cm/sMV A Wosdxxki44.3cm/sE/A ratio0.8 TDI Lateral E' Peak V7.31cm/sMedial E' Peak V7.80cm/sE/Lateral E'10.3 E/Medial E'9.7 Pulmonary Valve PV Peak Zrjmtbwi00.2cm/sPV Peak Grad.3mmHg Tricuspid Valve TR Peak Vaomzcqj604qp/sRAP [id number] Peak Gr.30mmHg [id number] LEFT VENTRICLE The left ventricle is normal size. There is mild to moderate concentric left ventricular hypertrophy. The left ventricular function is normal.EF-60-65% There is normal LV segmental wall motion. Transmitral Doppler flow pattern is Grade III-reversible restrictive diastolic dysfunction. No left ventricle thrombus noted on this study. There is no ventricular septal defect visualized. There is no left ventricular aneurysm. There is no mass noted in the left ventricle. RIGHT VENTRICLE The right ventricle is normal size. There is normal right ventricular wall thickness. The right ventricular systolic function is normal. ATRIA The left atrium size is normal. The right atrium size is normal. The interatrial septum is intact with no evidence for an atrial septal defect. AORTIC VALVE The aortic valve is mildly thickened but opens well. There is mild aortic regurgitation. There is no aortic valvular stenosis. There is no aortic valvular vegetation. MITRAL VALVE The mitral valve is thickened but opens well. Mitral regurgitation is mild to Moderate. There is no mitral valve stenosis. There is no evidence of mitral valve prolapse. TRICUSPID VALVE The tricuspid valve leaflets are thickened , but open well. There is mild tricuspid regurgitation.RVSP_40 mmof hg There is no tricuspid valve stenosis. There is no tricuspid valve prolapse or vegetation. PULMONIC VALVE The pulmonary valve is normal in structure. There is trace to mild pulmonic valvular regurgitation. There is no pulmonic valvular stenosis. GREAT VESSELS The aortic root is normal in size. The ascending aorta is normal in size. The pulmonary artery is normal. The IVC is normal in size and collapses >50% with inspiration. PERICARDIAL EFFUSION There is no pleural effusion. There is no pericardial effusion. <Conclusion> Normal chamber Size. EF-60-65% There is mild aortic regurgitation. Mitral regurgitation is mild to Moderate. There is mild tricuspid regurgitation.RVSP_40 mmof hg There is trace to mild pulmonic valvular regurgitation. The IVC is normal in size and collapses >50% with inspiration. There is no pericardial effusion. No vegetation or thrombus noted.
[2018-10-17 16:27] VITALS: O2SAT 95
[2018-10-18 07:51] LABS: BASO # 0.02 K/mm3 (0.0-2.0); BASO % 0.3 % (0.0-3.0); EOS # 0.1 (0.0-0.7); EOS % 2.3 % (1.5-5.0); HEMOGLOBIN 11.2 g/dL (14.0-18.0); LYMPH # 1.7 (1.2-3.4); LYMPH % 27.5 % (22.0-35.0); MEAN CELL VOLUME 89.4 fl (80.0-105.0); MEAN CORPUSCULAR HEMOGLOBIN 27.5 pg (25.0-35.0); MEAN CORPUSCULAR HGB CONC 30.8 g/dl (31.0-37.0); MEAN PLATELET VOLUME 10.2 fl (7.0-11.0); MONO # 0.4 (0.1-0.6); RBC 4.07 10^6/uL (3.5-6.1); RED CELL DISTRIBUTION WIDTH 14.4 % (11.5-14.5); WHITE BLOOD COUNT 6.1 10^3/uL (4.5-11.0)
[2018-10-18 08:16] VITALS: TEMP 98.5
[2018-10-18 08:21] LABS: ALB/GLOB RATIO 1.1 (1.1-1.8); CALCIUM 8.5 mg/dL (8.4-10.5)
[2018-10-18] MEDS: Albuterol-Ipratrop 3 mg / 0.5 (3 ml) UD IH SCH ×2 (09:33→12:16)
[2018-10-18] MEDS: Arformoterol 15 mcg/2 ml Inh Sol IH SCH (09:33)
[2018-10-18] MEDS: Budesonide 0.5 mg/2 ml Inhal Susp UD IH SCH (09:34)
[2018-10-18] MEDS ORDERED: Aminophylline 25 mg/ml Inj ONE (09:41)
[2018-10-18] MEDS ORDERED: Cefpodoxime (Vantin) 200 mg Tab PO SCH (10:00)
[2018-10-18 12:28] VITALS: BP 150/80; PULSE 86
[2018-10-18] MEDS: Enoxaparin 30 mg Syringe SC SCH (12:38)
[2018-10-18] MEDS: Pantoprazole 40 mg EC Tab PO SCH (12:39)
[2018-10-18] MEDS: Dutasteride [Avodart] 0.5 MG (HOME MED) PO SCH (12:39)
--- NOTE | 2018-10-18 14:00 | PN ---
DATE: 10/17/2018 SUBJECTIVE: The patient is comfortable, in no distress, going for MRI of his aorta neck. The patient has no chest pain, no short of breath. There is dizziness, comes and goes, but he seems stable now. No complaints. PHYSICAL EXAMINATION: VITAL SIGNS: On 10/17/2018; temperature 98.1, heart rate 93, blood pressure 121/61, respirations 18, saturation 94% on room air. HEAD AND NECK: Normal. No JVD. No thyromegaly. CHEST: Clear bilaterally. CARDIAC: First sound and second sound normal. No murmur, rub, or gallop. ABDOMEN: Soft, obese, nontender. EXTREMITIES: No edema. NEUROLOGIC: Normal. LABORATORY DATA: MRI of the neck shows air. We are going to discuss it in the MRA of the neck. It showed the following conclusions; high-grade stenosis in the cervical internal carotid artery and also mild stenosis in left vertebral artery and also high-grade origin right vertebral artery stenosis suspected, mild proximal right and left cervical internal carotid artery stenosis without additional evidence of stenosis. There is high-grade stenosis, proximal, right cervical internal carotid artery stenosis, so we have high-grade right cervical internal carotid artery stenosis, and also, we are having high-grade origin right vertebral artery stenosis. IMPRESSION AND PLAN: 1. 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 Both, the patient and family discussed with the son, he does not want any intervention. We will add Plavix, continue current therapy. 2. Dizziness could be due the above findings due to the insufficiency or could be cardiac. We will get the nuclear stress test in the morning and we will follow up on that. 3. Chronic obstructive pulmonary disease. 4. Peripheral vascular disease. 5. Urinary tract infection. Continue p.o. Vantin, if done with the stress test in the morning and the patient is stable, he does not want any surgery, we will continue current medications and we will follow up as outpatient. Plavix 75 mg will be added and Lipitor 40 mg will be added. Continue otherwise all medications and followup clinically. Hunter Torres MD
--- NOTE | 2018-10-18 16:43 | CARD ---
APPROVED REPORT Date of service: 10/18/2018 Protocol: LEXISCAN Test Type: Lexiscan Sestamibi Stress Test Attending Physician: Dr. Steve Yoder Referring Physician: Dr. Hunter Torres Test Indications: Chest Pain Height:5 ft 0 in Weight:176lbs Medications: Duoneb, Brovana, Ecotrin, Lipitor, Pulmicort, Vantin, Pletal, Plavix Aricept, Lovenox, Pepcid, Namenda Avodart, Protonix Medical History: 88 YEAR OLD MALE WITH A HISTORY OF DIABETES, COPD, HTN, GERD Target HR: 134 bpm Resting ECG: RSR. Resting Heart Rate: 86 bpm Resting Blood Pressure: 150/80mmHg Submaximum (85%): 114 bpm PROCEDURE Pharmacologic stress testing was performed using 0.4mg per 5ml of regadenoson given intravenously over 7-10 seconds. POST EXERCISE Reason for Termination: Protocol completed Target HR: No Max HR: 86 bpm 81% of Maximum Predicted HR: 134 bpm Exercise duration: 00:31 min:sec, 0 Stage Exercise capacity: 1.0METs Max Blood Pressure: 150/80mmHg Blood Pressure response to exercise: normal resting BP - appropriate response Heart Rate response to exercise: appropriate Chest Pain: No, none Angina index: 0 Arrhythmia: No, none ST Change: No, none Deviation: 0 mm INTERPRETATION Stress EKG Conclusion: IV LEXISCAN NUCLEAR STRESS TEST NEGATIVE FOR CHEST PAIN AND NEGATIVE FOR ST-T CHANGES. NUCLEAR SCAN REPORT PENDING. Signed by Steve Yoder Electronically Approved: 10/18/2018 11:33:22 EXAM: Myocardial Perfusion REST/STRESS Stress Test Type: Pharmacologic Imaging Protocol Rest Spect myocardial perfusion imaging was performed in supine position 39 minutes following the injection of 10.2 mCi of Tc-99 Myoview. At peak stress, the patient was injected intravenously with 32.1mCi of Tc-99 tetrofosmin after an infusion time of minutes and 10 seconds. Gated Stress Spect was performed 60 minutes after intravenous Tc-99 Myoview injection. The images were gated to evaluate regional wall motion and calculate ventricular ejection fraction.Images were reconstructed using backfilter projection method in short horizontal and verticle long axis. Spect slices were generated. LV Perfusion The quality of the study is good. The left ventricle is normal in size. The right ventricle is unremarkable. The lung uptake is normal. The distribution of tracer reveals mildly to moderately decreased perfusion in the inferior wall on the stress study. The remainder of the LV myocardium is unremarkable. The rest myocardial perfusion study shows no significant change. Wall Motion Wall motion study shows good contractility of the left ventricle. LVEF = 62%. Conclusion 1. Probably normal SPECT myocardial perfusion study. 2. Fixed, inferior defect is most likely due to diaphrgmatic attenuation. 3. Normal gated wall motion and thicknening of the left ventricle.
--- NOTE | 2018-10-18 16:44 | PN ---
DATE: 10/18/2018 LOCATION: Room 573, bed 1. REASON FOR CONSULTATION AND FOLLOWUP: Dizziness, unsteady gait, and peripheral vascular disease. Consult was also requested for abnormal EKG to rule out cardiac arrhythmia. SUBJECTIVE: The patient is lying flat in bed without chest pain, shortness of breath, or palpitation. Denies dizziness at present. PHYSICAL EXAMINATION VITAL SIGNS: Blood pressure 98/58, respirations 18, pulse 99, and temperature 98.5. HEENT: Head is normocephalic. Eyes, pupils normal. Conjunctivae slightly pale. NECK: JVP low. Carotids equal. THORAX: AP diameter normal. LUNGS: Clear. CARDIOVASCULAR: S1 and S2. ABDOMEN: Soft. No tenderness. No organomegaly. EXTREMITIES: No clubbing. No cyanosis. LABORATORY DATA: WBC 8.1, hemoglobin 11.2, hematocrit 36.4, and platelets 246. Sodium 142, potassium 3.9, BUN 25, creatinine 1.4, hemoglobin A1c 6.9, calcium 8.5, phosphorus 3.2, magnesium 2.3, TSH 0.94. EKG, the patient has shown artifacts and tremors and actually the patient was in sinus rhythm. There is no arrhythmia noticed on the EKG. PLAN: The patient's echo showed normal LV size and normal LV systolic function he has 60% to 65%, mild to moderate mitral regurgitation, mild tricuspid regurgitation, RVSP 40 mmHg, and mild aortic regurgitation. The patient's JACE of lower extremity done; right JACE is mildly abnormal, left JACE is moderately abnormal. There is 51 mmHg difference between brachial pressure consistent with subclavian occlusive disease. There is 28 mm gradient across the left side, this is consistent with left SFA occlusive disease. The patient's blood pressure lying down 89/55, sitting 89/56, standing 100/63, so no evidence of postural hypotension. The patient has peripheral vascular disease, chronic obstructive pulmonary disease, hypertension, diabetes, and dizziness. We will continue aspirin 81 mg daily, atorvastatin 40 mg p.o. daily, Lovenox 30 mg subcutaneous daily, Namenda 10 mg p.o. daily, Plavix 75 mg daily, and Vantin 200 mg p.o. daily. The patient had IV Lexiscan stress test EKG part did not show any significant abnormality, because the patient did not have any chest pain and no EKG changes, but nuclear scan report is pending. We will continue to follow closely. Steve Yoder MD
--- NOTE | 2018-10-19 22:39 | DS ---
HISTORY OF PRESENT ILLNESS: An 88-year-old male came in to our hospital complaining of dizziness and unsteadiness. Patient was evaluated for cardiovascular problem including MRI of the brain which is negative. He had an MRI of his aortic arch which revealed stenosis at the right subclavian, it shows high grade stenosis at right cervical, internal carotid. He had mild right cervical internal carotid stenosis with high grade stenosis. Also, had high grade stenosis of right vertebral artery suspected plus mild left vertebra, mild left cervical and also he had subclavian artery stenosis. Discussion with his son, he recommend non-interventional therapy including Plavix, Lipitor, aspirin, which he has been proceeded. Patient also had seen by Cardiology, Dr. Tapia and who did nuclear stress testing, which shows probable normal myocardial effusion study which is normal and he has 62% ejection fraction. Patient was discharged home to be followed as outpatient. He also had MRI of the neck, MRI of the brain seen by Neurology, Dr. Post. On discharge also patient had found to have urinary tract infection, was treated with Rocephin while in the hospital and negative. Patient was discharged. He was stable hemodynamically. Alert, awake, oriented x3. PHYSICAL EXAMINATION: VITAL SIGNS: Temperature 98, heart rate 99, blood pressure is 121/61, respiration 18, and saturating 95% in the room air. HEAD AND NECK: Normal. No JVD. No thyromegaly. CHEST: Clear bilaterally. CARDIAC: First sound and second sound normal. ABDOMEN: Obese and nontender. EXTREMITIES: No edema. NEUROLOGIC: Normal. LABORATORY DATA: Shows white count 6.1, hemoglobin 11.2, hematocrit 36.4, and platelets 246. Chemistry shows sodium 142, potassium 3.9, chloride 107, bicarbonate 29, BUN 25, and creatinine 1.4. Liver function test is normal. DISCHARGE DIAGNOSES: 1. Dizziness secondary to carotid stenosis with vertebral artery stenosis most likely. 2. Carotid stenosis. 3. Vertebral artery stenosis as the origin. 4. Peripheral vascular disease, lower extremities. 5. Left subclavian artery occlusion. 6. Unsteady gait. 7. Hypercholesterolemia. 8. History of chronic obstructive pulmonary disease. 9. History of alcohol use disorder 20 years ago, otherwise stable. PLAN: Discharge the patient home. He was given all these meds including Lipitor 10 mg, aspirin 81 mg, and Plavix 75 mg. We will discontinue Pletal to decrease the risk of bleeding and resume the rest of the medication. Follow up in the office within a week. Discussed all the result with the patient and the patient's family. Hunter Torres MD
== END 2018-10-18 13:55 | disposition home or self-care (01) | DRG 68 ==
LOC: ED 09:35 → ERH 11:56 → OBSVTOIN 10-15 08:26 → ERH 10-15 17:53 → 5RNO 10-15 18:26 → 5RSO 10-16 11:45
PROVIDERS: ADMIT Internal Medicine; ATTEND Internal Medicine
PROC: 3E0F7GC Introduction of Other Therapeutic Substance into Respiratory Tract, Via Natural or Artificial Opening (ICD-10-PCS; principal; 2018-10-15)
DX: I65.01 Occlusion and stenosis of right vertebral artery (principal); N39.0 Urinary tract infection, site not specified; I65.21 Occlusion and stenosis of right carotid artery; I10 Essential (primary) hypertension; E11.51 Type 2 diabetes mellitus with diabetic peripheral angiopathy without gangrene; F01.50 Vascular dementia, unspecified severity, without behavioral disturbance, psychotic disturbance, mood disturbance, and anxiety; J44.9 Chronic obstructive pulmonary disease, unspecified; N40.0 Benign prostatic hyperplasia without lower urinary tract symptoms; I70.8 Atherosclerosis of other arteries; R26.81 Unsteadiness on feet; E78.00 Pure hypercholesterolemia, unspecified; I08.3 Combined rheumatic disorders of mitral, aortic and tricuspid valves; E66.9 Obesity, unspecified; Z68.34 Body mass index [BMI] 34.0-34.9, adult; Z79.82 Long term (current) use of aspirin; Z87.891 Personal history of nicotine dependence

== ENCOUNTER 2018-12-17 09:36 | Outpatient (CLI) | payer MEDICARE, MEDICAID | END 2018-12-17 09:37 | disposition home or self-care (01) | LOC: RAD 09:36 ==